=== PATIENT | male | born 1970 | race Caucasian/White ===

== ENCOUNTER 2022-06-19 18:53 | Emergency (ER) | payer MEDICARE ==
[~2022-06-19] VITALS: Ht 182.9 cm; Wt 81.7 kg
== END 2022-06-19 19:05 | disposition home or self-care (01) ==
LOC: ER 18:53
DX: M79.672 Pain in left foot (principal); M79.671 Pain in right foot; G89.29 Other chronic pain
CPT/HCPCS: 99283